=== PATIENT | male | born 1955 | race Caucasian/White ===

== ENCOUNTER 2018-03-15 07:23 | Inpatient (IN) | payer BC, MEDICAID, MEDICARE, OTHER ==
[2018-03-15 07:48] VITALS: BMI 31.8
[2018-03-15] MEDS ORDERED: Sodium Chloride 0.9% 1,000 ML IV STA (07:58)
[2018-03-15] MEDS ORDERED: Alum-Mag Hydrox-Simethicone Susp (30 mL) PO STA (07:58)
[2018-03-15] MEDS ORDERED: Aluminum Hydroxide/Magnesium Hydroxide Susp (30 mL) ONE (08:09)
[2018-03-15] MEDS ORDERED: Sodium Chloride 0.9% 1,000 ML ONE (08:09)
--- NOTE | 2018-03-15 08:13 | C.PDOC ---
History Of Present Illness 62 years old male with PMHx of hypercholesterolemia presents to ED for complaints of abdominal pain that began last night. Patient reports non-bloody, non- bilious vomiting x8 and non-bloody diarrhea. Denies fever, SOB, dysuria, or recent travel. Patient also complaints of experiencing left sided chest pain x3 that began last night. He also reports left flank pain. Time Seen by Provider: 03/15/18 07:50 Chief Complaint (Nursing): GI Problem History Per: Patient History/Exam Limitations: no limitations Onset/Duration Of Symptoms: Hrs Current Symptoms Are (Timing): Still Present Radiation Of Pain To:: Flank Associated Symptoms: Vomiting, Diarrhea. denies: Fever, Urinary Symptoms Exacerbating Factors: None Alleviating Factors: None Last Bowel Movement: Today Recent travel outside of the [place]: No Past Medical History Reviewed: Historical Data, Nursing Documentation, Vital Signs Vital Signs: Last Vital Signs Temp 98.4 F 03/15/18 07:28 Pulse 110 H 03/15/18 07:58 Resp 20 03/15/18 07:58 BP 121/82 03/15/18 07:58 Pulse Ox 95 03/15/18 07:58 - Medical History PMH: Hypercholesterolemia Family History: States: No Known Family Hx - Social History Hx Alcohol Use: No Hx Substance Use: No - Immunization History Hx Tetanus Toxoid Vaccination: No Hx Influenza Vaccination: No Hx Pneumococcal Vaccination: No Review Of Systems Respiratory: Negative for: Shortness of Breath Genitourinary: Negative for: Dysuria Physical Exam - Physical Exam Additional Physical Exam Comments: Constitutional: No acute distress. Head: Normocephalic. Atraumatic. Eyes: PERRL. ENT: Moist mucous membranes. Neck: Supple. Cardiovascular: Tachycardic. Chest: No tenderness. Respiratory: Clear to auscultation bilaterally. GI: Soft. Nontender. Nondistended. Back: No CVA tenderness. Musculoskeletal: No tenderness or swelling of extremities. Skin: No rash. Neurologic: Alert, no focal deficit. ED Course And Treatment - Laboratory Results Result Diagrams: 03/15/18 08:12 03/15/18 08:12 O2 Sat by Pulse Oximetry: 95 (RA) Pulse Ox Interpretation: Normal Medical Decision Making Medical Decision Making: Plan: * IV Fluids * Maalox * Pepcid * Zofran * CXR * CT Abdomen&Pelvis * Urine Culture * Urinalysis EKG: * Sinus Rhythm at 109 bpm * No ST-Elevations Aspirin administered. First set of enzymes negative. Dr. Samano accepts patient to medical service for chest pain observation. Antibiotics administered for enteritis. Disposition - Disposition Disposition: HOSPITALIZED Disposition Time: 10:31 Condition: FAIR Additional Instructions: FINDINGS: LOWER THORAX: There is subsegmental atelectasis in the right lung base. The visualized left lung is clear. LIVER: Normal in size with homogeneous enhancement. No gross lesion or ductal dilatation. GALLBLADDER AND BILE DUCTS: Well distended. No calcified gallstones, wall thickening or pericholecystic fluid. PANCREAS: Mild fatty atrophy. No gross lesion or ductal dilatation. SPLEEN: Normal in size and appearance. ADRENALS: No discrete nodule. KIDNEYS AND URETERS: Normal in size with homogeneous enhancement. No hydronephrosis. No solid mass. VASCULATURE: No aortic aneurysm. BOWEL: Evaluation of the bowel is limited in the absence of oral contrast. The proximal small bowel loops are normal in caliber. There are fluid-filled dilated mid and distal small bowel loops and fluid in the colon with air-fluid levels. There is left colonic diverticulosis without CT evidence for acute diverticulitis. No bowel obstruction. APPENDIX: Normal appendix. PERITONEUM: No free fluid. No free air. LYMPH NODES: No enlarged lymph nodes. BLADDER: Well distended and normal in appearance. REPRODUCTIVE: The prostate gland is normal in size. BONES: No acute fracture. Within normal limits for the patient's age. OTHER FINDINGS: None. IMPRESSION: Findings are most compatible with nonspecific acute infectious/inflammatory enterocolitis. No bowel obstruction. Left colonic diverticulosis without CT evidence for acute diverticulitis. Forms: [employer] (Pashto) - POA Core Measure Indicators: Chest Pain - Clinical Impression Clinical Impression: Chest pain, Enterocolitis - Scribe Statement The provider has reviewed the documentation as recorded by the Hector Davis All medical record entries made by the Hector were at my direction and personally dictated by me. I have reviewed the chart and agree that the record accurately reflects my personal performance of the history, physical exam, medical decision making, and the department course for this patient. I have also personally directed, reviewed, and agree with the discharge instructions and disposition.
[2018-03-15 08:18] LABS: BASO % 0.2 % (0.0-2.0); EOS % 0.1 % (0.0-4.0); HEMOGLOBIN 17.5 g/dL (12.0-18.0); LYMPH # 0.4 K/uL (1.0-4.3); LYMPH % 4.3 % (20.0-40.0); MEAN CORPUSCULAR HEMOGLOBIN 32.1 pg (27.0-31.0); MEAN CORPUSCULAR HGB CONC 34.5 g/dL (33.0-37.0); MEAN PLATELET VOLUME 9.8 fL (7.2-11.7); MONO # 0.3 K/uL (0.0-0.8); MONO % 2.7 % (0.0-10.0); NEUT % 92.7 % (50.0-75.0); NRBC % 0.3 % (0.0-2.0); PLATELET COUNT 170 K/uL (130-400); RBC 5.45 Mil/uL (4.40-5.90); RED CELL DISTRIBUTION WIDTH 13.3 % (11.5-14.5); WHITE BLOOD COUNT 9.7 K/uL (4.8-10.8)
[2018-03-15 08:21] LABS: SQUAMOUS EPITHIAL < 1 /hpf (0-5); URINE BILIRUBIN 2+ (NEGATIVE); URINE BLOOD NEGATIVE (NEGATIVE); URINE CLARITY Hazy (Clear); URINE COLOR Amber (YELLOW); URINE GLUCOSE (UA) NORMAL (Normal); URINE LEUKOCYTE ESTERASE NEG Leu/uL (Negative); URINE PROTEIN 2+ mg/dL (NEGATIVE)
[2018-03-15 08:28] LABS: ALB/GLOB RATIO 1.2 (1.0-2.1); ALBUMIN 4.7 g/dL (3.5-5.0); ALT/SGPT 77 U/L (21-72); AST/SGOT 53 U/L (17-59); BLOOD UREA NITROGEN 22 mg/dL (9-20); CALCIUM 8.9 mg/dl (8.6-10.4); GFR NON-AFRICAN AMERICAN > 60
[2018-03-15 08:29] LABS: LIPASE < 10 U/L (23-300)
[2018-03-15 08:42] LABS: CK-MB 0.79 ng/mL (0.0-3.38)
[2018-03-15 09:24] LABS: LYMPHOCYTE 7 % (20-40); MONOCYTE 3 % (0-10); NEUTROPHIL 90 % (50-75); PLATELET ESTIMATE NORMAL (NORMAL); TOTAL CELLS COUNTED 100
[2018-03-15] MEDS ORDERED: Iodixanol 320 mg/ml 150 ml Bottle IV ONE (09:25)
--- NOTE | 2018-03-15 10:24 | CT ---
Date of service: 03/15/2018 PROCEDURE: CT Abdomen and Pelvis with contrast HISTORY: abd pain, vomiting, diarrhea COMPARISON: None available. TECHNIQUE: CT scan of the abdomen and pelvis was performed after administration of intravenous contrast. Oral contrast was not administered. Coronal and sagittal reformatted images were obtained. Contrast dose: 100 mL Visipaque 320 Radiation dose: Total exam DLP = 913.87 mGy-cm. This CT exam was performed using one or more of the following dose reduction techniques: Automated exposure control, adjustment of the mA and/or kV according to patient size, and/or use of iterative reconstruction technique. FINDINGS: LOWER THORAX: There is subsegmental atelectasis in the right lung base. The visualized left lung is clear. LIVER: Normal in size with homogeneous enhancement. No gross lesion or ductal dilatation. GALLBLADDER AND BILE DUCTS: Well distended. No calcified gallstones, wall thickening or pericholecystic fluid. PANCREAS: Mild fatty atrophy. No gross lesion or ductal dilatation. SPLEEN: Normal in size and appearance. ADRENALS: No discrete nodule. KIDNEYS AND URETERS: Normal in size with homogeneous enhancement. No hydronephrosis. No solid mass. VASCULATURE: No aortic aneurysm. BOWEL: Evaluation of the bowel is limited in the absence of oral contrast. The proximal small bowel loops are normal in caliber. There are fluid-filled dilated mid and distal small bowel loops and fluid in the colon with air-fluid levels. There is left colonic diverticulosis without CT evidence for acute diverticulitis. No bowel obstruction. APPENDIX: Normal appendix. PERITONEUM: No free fluid. No free air. LYMPH NODES: No enlarged lymph nodes. BLADDER: Well distended and normal in appearance. REPRODUCTIVE: The prostate gland is normal in size. BONES: No acute fracture. Within normal limits for the patient's age. OTHER FINDINGS: None. IMPRESSION: Findings are most compatible with nonspecific acute infectious/inflammatory enterocolitis. No bowel obstruction. Left colonic diverticulosis without CT evidence for acute diverticulitis.
[2018-03-15] MEDS ORDERED: Ciprofloxacin 400mg/200ml D5W 400 MG/200 ML BAG IVPB STA (10:44)
[2018-03-15] MEDS ORDERED: metroNIDAZOLE IV 500 mg/100 ml 500 MG/100 ML BAG IVPB STA (10:44)
[2018-03-15] MEDS ORDERED: metroNIDAZOLE IV 500 mg/100 ml 500 MG/100 ML BAG ONE (10:52)
--- NOTE | 2018-03-15 10:52 | RAD ---
Date of service: 03/15/2018 HISTORY: chest pain COMPARISON: No prior. FINDINGS: LUNGS: The lungs are well inflated and clear. PLEURA: No pleural effusions or pneumothorax. CARDIOVASCULAR: The heart is normal in size. No aortic atherosclerotic calcification present. OSSEOUS STRUCTURES: Within normal limits for the patient's age. VISUALIZED UPPER ABDOMEN: Normal. OTHER FINDINGS: None. IMPRESSION: No active pulmonary disease.
[2018-03-15] MEDS ORDERED: Ciprofloxacin 400mg/200ml D5W 400 MG/200 ML BAG IVPB ONE (11:31)
--- NOTE | 2018-03-15 14:03 | CP.PCM.HP ---
History of Present Illness - History of Present Illness History of Present Illness: 62 years old male with PMHx of hypercholesterolemia presents to ED for complaints of abdominal pain that began last night. Patient reports non-bloody, non- bilious vomiting x8 and non-bloody diarrhea. Denies fever, SOB, dysuria, or recent travel. Patient also complaints of experiencing left sided chest pain x3 that began last night. Review of Systems - Review of Systems All systems: reviewed and no additional remarkable complaints except (abdominal and lower chest pain) Past Patient History - Past Medical History & Family History Past Medical History?: Yes - Past Social History Smoking Status: Never Smoked - CARDIAC Hx Hypercholesterolemia: Yes - PULMONARY Hx Respiratory Disorders: No - NEUROLOGICAL Hx Neurological Disorder: No - HEENT Hx HEENT Problems: Yes (THROAT POLYP) - RENAL Hx Chronic Kidney Disease: No - ENDOCRINE/METABOLIC Hx Endocrine Disorders: No - HEMATOLOGICAL/ONCOLOGICAL Hx Blood Disorders: No - INTEGUMENTARY Hx Dermatological Problems: No - MUSCULOSKELETAL/RHEUMATOLOGICAL Hx Musculoskeletal Disorders: Yes Hx Back Pain: Yes - GASTROINTESTINAL Hx Gastrointestinal Disorders: No - GENITOURINARY/GYNECOLOGICAL Hx Genitourinary Disorders: No - PSYCHIATRIC Hx Substance Use: No - SURGICAL HISTORY Hx Surgeries: Yes Other/Comment: THROAT BIOPSY - ANESTHESIA Hx Anesthesia: Yes Hx Anesthesia Reactions: No Hx Malignant Hyperthermia: No Meds Allergies/Adverse Reactions: Allergies Allergy/AdvReac Type Severity Reaction Status Date / Time No Known Allergies Allergy Verified 03/15/18 07:27 Physical Exam - Constitutional Appears: Well - Head Exam Head Exam: ATRAUMATIC, NORMAL INSPECTION, NORMOCEPHALIC - Eye Exam Eye Exam: EOMI, Normal appearance, PERRL Pupil Exam: NORMAL ACCOMODATION, PERRL - ENT Exam ENT Exam: Mucous Membranes Moist, Normal Exam - Neck Exam Neck exam: Positive for: Normal Inspection - Respiratory Exam Respiratory Exam: Clear to Auscultation Bilateral, NORMAL BREATHING PATTERN - Cardiovascular Exam Cardiovascular Exam: REGULAR RHYTHM - GI/Abdominal Exam GI & Abdominal Exam: Normal Bowel Sounds, Tenderness. absent: Distended, Guarding, Organomegaly, Pulsatile Mass, Rebound - Back Exam Back exam: absent: CVA tenderness (L), CVA tenderness (R) Results - Vital Signs Recent Vital Signs: Last Vital Signs Temp 97.7 F 03/15/18 12:20 Pulse 86 03/15/18 12:20 Resp 18 03/15/18 12:20 BP 112/74 03/15/18 12:20 Pulse Ox 97 03/15/18 12:20 - Labs Result Diagrams: 03/15/18 08:12 03/15/18 08:12 Labs: Laboratory Results - last 24 hr 03/15/18 03/15/18 03/15/18 08:12 08:12 08:12 WBC 9.7 RBC 5.45 Hgb 17.5 Hct 50.7 MCV 93.0 MCH 32.1 H MCHC 34.5 RDW 13.3 Plt Count 170 MPV 9.8 Neut % (Auto) 92.7 H Lymph % (Auto) 4.3 L [place] % (Auto) 2.7 Eos % (Auto) 0.1 Baso % (Auto) 0.2 Neut # (Auto) 9.0 H Lymph # (Auto) 0.4 L [place] # (Auto) 0.3 Eos # (Auto) 0.0 Baso # (Auto) 0.0 Neutrophils % (Manual) 90 H Lymphocytes % (Manual) 7 L Monocytes % (Manual) 3 Platelet Estimate Normal Sodium 140 Potassium 3.8 Chloride 104 Carbon Dioxide 23 Anion Gap 17 BUN 22 H Creatinine 0.8 Est GFR ( Amer) > 60 Est GFR (Non-Af Amer) > 60 Random Glucose 149 H D Calcium 8.9 Total Bilirubin 1.0 AST 53 ALT 77 H D Alkaline Phosphatase 66 Total Creatine Kinase 96 CK-MB (Mass) 0.79 Troponin I < 0.0120 Total Protein 8.6 H Albumin 4.7 Globulin 3.8 Albumin/Globulin Ratio 1.2 Lipase < 10 L Urine Color Kathia Urine Clarity Hazy Urine pH 5.0 Ur Specific [place] 1.034 H Urine Protein 2+ H Urine Glucose (UA) Normal Urine Ketones Negative Urine Blood Negative Urine Nitrate Negative Urine Bilirubin 2+ H Urine Urobilinogen 2.0 Ur Leukocyte Esterase Neg Urine WBC (Auto) 5 Urine RBC (Auto) 2 Ur Squamous Epith Cells < 1 Assessment & Plan (1) Chest pain Status: Acute (2) Enterocolitis Status: Acute
[2018-03-15 15:39] LABS: CK-MB 0.86 ng/mL (0.0-3.38)
--- NOTE | 2018-03-15 20:43 | CP.PCM.CON ---
History of Present Illness - History of Present Illness History of Present Illness: 62 yo male admitted with diffuse abdominal pain, watery diarrhea and vomiting of bile x8. No fever, chills, bleeding or melena. Pt had colonoscopy 2 years ago showing a small hyperplastic polyp, diverticulosis and internal hemorrhoids with a suboptimal prep. Repeat colonoscopy was advised at that time. CT now show non- specific air fluid levels in small and large bowel in a non-contrast study (no po or IV). Asked to evaluate for enterocolitis. No travel or recent antibiotic use. Review of Systems - Review of Systems Systems not reviewed;Unavailable: Language Barrier Past Patient History - Past Medical History & Family History Past Medical History?: Yes - Past Social History Smoking Status: Never Smoked Alcohol: None Drugs: Denies - CARDIAC Hx Hypercholesterolemia: Yes - PULMONARY Hx Respiratory Disorders: No - NEUROLOGICAL Hx Neurological Disorder: No - HEENT Hx HEENT Problems: Yes (THROAT POLYP) - RENAL Hx Chronic Kidney Disease: No - ENDOCRINE/METABOLIC Hx Endocrine Disorders: No - HEMATOLOGICAL/ONCOLOGICAL Hx Blood Disorders: No Hx Cirrhosis: No Hx Hepatitis A: No Hx Hepatitis B: No Hx Hepatitis C: No - INTEGUMENTARY Hx Dermatological Problems: No - MUSCULOSKELETAL/RHEUMATOLOGICAL Hx Musculoskeletal Disorders: Yes Hx Back Pain: Yes - GASTROINTESTINAL Hx Gastrointestinal Disorders: Yes Hx Bowel Surgery: No Hx Clostridium Difficile: No Hx Colitis: No Hx Colostomy: No Hx Constipation: Yes Hx Crohn's Disease: No Hx Diarrhea: No Hx Diverticulitis: Yes Hx Esophageal Varices: No Hx Fatty Liver Disease: No Hx Gall Bladder Disease: No Hx Gastritis: No Hx Gastroesophageal Reflux: No Hx Hemorrhoids: No Hx Ileostomy: No Hx Irritable Bowel: No Hx Liver Failure: No Hx Nausea: No Hx Pancreatitis: No HX Swallowing Problems: No Hx Ulcer: No Hx Vomiting: No - GENITOURINARY/GYNECOLOGICAL Hx Genitourinary Disorders: No - PSYCHIATRIC Hx Substance Use: No - SURGICAL HISTORY Hx Surgeries: Yes Other/Comment: THROAT BIOPSY - ANESTHESIA Hx Anesthesia: Yes Hx Anesthesia Reactions: No Hx Malignant Hyperthermia: No Meds Allergies/Adverse Reactions: Allergies Allergy/AdvReac Type Severity Reaction Status Date / Time No Known Allergies Allergy Verified 03/15/18 07:27 - Medications Medications: Current Medications Aspirin (Ecotrin) 81 mg PO DAILY [facility] Enoxaparin Sodium (Lovenox) 40 mg SC DAILY [facility] Physical Exam - Constitutional Appears: No Acute Distress - Head Exam Head Exam: ATRAUMATIC, NORMOCEPHALIC - Eye Exam Eye Exam: EOMI, PERRL - Respiratory Exam Respiratory Exam: NORMAL BREATHING PATTERN - Cardiovascular Exam Cardiovascular Exam: REGULAR RHYTHM, +S1 - GI/Abdominal Exam GI & Abdominal Exam: Normal Bowel Sounds, Soft. absent: Distended, Mass, Rebound, Tenderness - Rectal Exam Rectal Exam: NORMAL INSPECTION - Extremities Exam Extremities exam: Positive for: normal inspection Results - Vital Signs Recent Vital Signs: Last Vital Signs Temp 98.1 F 03/15/18 17:25 Pulse 89 03/15/18 17:25 Resp 18 03/15/18 17:25 BP 124/80 03/15/18 17:25 Pulse Ox 94 L 03/15/18 17:25 - Labs Result Diagrams: 03/16/18 07:58 03/16/18 07:58 Labs: Laboratory Results - last 24 hr 03/15/18 03/15/18 03/15/18 08:12 08:12 08:12 WBC 9.7 RBC 5.45 Hgb 17.5 Hct 50.7 MCV 93.0 MCH 32.1 H MCHC 34.5 RDW 13.3 Plt Count 170 MPV 9.8 Neut % (Auto) 92.7 H Lymph % (Auto) 4.3 L [place] % (Auto) 2.7 Eos % (Auto) 0.1 Baso % (Auto) 0.2 Neut # (Auto) 9.0 H Lymph # (Auto) 0.4 L [place] # (Auto) 0.3 Eos # (Auto) 0.0 Baso # (Auto) 0.0 Neutrophils % (Manual) 90 H Lymphocytes % (Manual) 7 L Monocytes % (Manual) 3 Platelet Estimate Normal Sodium 140 Potassium 3.8 Chloride 104 Carbon Dioxide 23 Anion Gap 17 BUN 22 H Creatinine 0.8 Est GFR ( Amer) > 60 Est GFR (Non-Af Amer) > 60 Random Glucose 149 H D Calcium 8.9 Total Bilirubin 1.0 AST 53 ALT 77 H D Alkaline Phosphatase 66 Total Creatine Kinase 96 CK-MB (Mass) 0.79 Troponin I < 0.0120 Total Protein 8.6 H Albumin 4.7 Globulin 3.8 Albumin/Globulin Ratio 1.2 Lipase < 10 L Urine Color Kathia Urine Clarity Hazy Urine pH 5.0 Ur Specific [place] 1.034 H Urine Protein 2+ H Urine Glucose (UA) Normal Urine Ketones Negative Urine Blood Negative Urine Nitrate Negative Urine Bilirubin 2+ H Urine Urobilinogen 2.0 Ur Leukocyte Esterase Neg Urine WBC (Auto) 5 Urine RBC (Auto) 2 Ur Squamous Epith Cells < 1 03/15/18 14:32 WBC RBC Hgb Hct MCV MCH MCHC RDW Plt Count MPV Neut % (Auto) Lymph % (Auto) [place] % (Auto) Eos % (Auto) Baso % (Auto) Neut # (Auto) Lymph # (Auto) [place] # (Auto) Eos # (Auto) Baso # (Auto) Neutrophils % (Manual) Lymphocytes % (Manual) Monocytes % (Manual) Platelet Estimate Sodium Potassium Chloride Carbon Dioxide Anion Gap BUN Creatinine Est GFR ( Amer) Est GFR (Non-Af Amer) Random Glucose Calcium Total Bilirubin AST ALT Alkaline Phosphatase Total Creatine Kinase 111 CK-MB (Mass) 0.86 Troponin I < 0.0120 Total Protein Albumin Globulin Albumin/Globulin Ratio Lipase Urine Color Urine Clarity Urine pH Ur Specific [place] Urine Protein Urine Glucose (UA) Urine Ketones Urine Blood Urine Nitrate Urine Bilirubin Urine Urobilinogen Ur Leukocyte Esterase Urine WBC (Auto) Urine RBC (Auto) Ur Squamous Epith Cells Assessment & Plan (1) Lower abdominal pain Assessment and Plan: Patient with pain, N/V and diarrhea with non-specific CT findings suggestive of an acute infectious process/enteritis. Check stool studies Sonogram to r/o cholecystitis IV fluids and supportive care Defer emperic antibiotics at this time. Status: Acute (2) Diarrhea Assessment and Plan: as above Status: Acute (3) Nausea and vomiting Assessment and Plan: as above Status: Acute (4) Abnormal CT of the abdomen Assessment and Plan: as above Status: Acute
[2018-03-16 08:08] LABS: BASO % 0.4 % (0.0-2.0); EOS # 0.2 K/uL (0.0-0.7); EOS % 3.9 % (0.0-4.0); LYMPH # 0.8 K/uL (1.0-4.3); LYMPH % 15.3 % (20.0-40.0); MEAN CELL VOLUME 94.1 fL (80.0-94.0); MEAN CORPUSCULAR HEMOGLOBIN 32.1 pg (27.0-31.0); MEAN CORPUSCULAR HGB CONC 34.1 g/dL (33.0-37.0); MEAN PLATELET VOLUME 9.2 fL (7.2-11.7); MONO # 0.6 K/uL (0.0-0.8); MONO % 10.2 % (0.0-10.0); NEUT # 3.8 K/uL (1.8-7.0); NEUT % 70.2 % (50.0-75.0); NRBC % 0.2 % (0.0-2.0); RBC 5.29 Mil/uL (4.40-5.90); RED CELL DISTRIBUTION WIDTH 13.7 % (11.5-14.5); WHITE BLOOD COUNT 5.4 K/uL (4.8-10.8)
[2018-03-16 08:27] LABS: ALB/GLOB RATIO 1.2 (1.0-2.1); ALBUMIN 4.3 g/dL (3.5-5.0); ALT/SGPT 91 U/L (21-72); AST/SGOT 78 U/L (17-59); BLOOD UREA NITROGEN 16 mg/dL (9-20); CALCIUM 8.6 mg/dl (8.6-10.4); GFR NON-AFRICAN AMERICAN > 60
[2018-03-16 08:32] LABS: CK-MB 0.58 ng/mL (0.0-3.38)
[2018-03-16] MEDS: Enoxaparin 40 mg Syringe SC SCH (10:23)
--- NOTE | 2018-03-16 10:56 | CP.PCM.PN ---
Subjective - Date & Time of Evaluation Date of Evaluation: 03/16/18 Time of Evaluation: 10:54 - Subjective Subjective: No further N/V Has some RLQ pain and diarrhea persists No stool studies reported Objective - Vital Signs/Intake and Output Vital Signs (last 24 hours): Temp Pulse Resp BP Pulse Ox 97.2 F L 74 20 114/74 94 L 03/16/18 07:00 03/16/18 07:00 03/16/18 07:00 03/16/18 07:00 03/16/18 07:00 - Medications Medications: Current Medications Aspirin (Ecotrin) 81 mg PO DAILY [facility] Last Admin: 03/16/18 10:22 Dose: 81 mg Enoxaparin Sodium (Lovenox) 40 mg SC DAILY [facility] Last Admin: 03/16/18 10:23 Dose: 40 mg - Labs Labs: 03/16/18 07:58 03/16/18 07:58 - Constitutional Appears: No Acute Distress - Head Exam Head Exam: ATRAUMATIC, NORMOCEPHALIC - Eye Exam Eye Exam: EOMI, PERRL - Respiratory Exam Respiratory Exam: NORMAL BREATHING PATTERN - Cardiovascular Exam Cardiovascular Exam: REGULAR RHYTHM, +S1 - GI/Abdominal Exam GI & Abdominal Exam: Soft, Normal Bowel Sounds. absent: Distended, Guarding, Tenderness, Mass, Rebound - Extremities Exam Extremities Exam: Normal Inspection Assessment and Plan (1) Lower abdominal pain Assessment & Plan: Continue supportive care Awaiting stool studies Labs appear stable Advance diet when pain free Check Ultrasound Status: Acute (2) Diarrhea Status: Acute (3) Nausea and vomiting Status: Acute (4) Abnormal CT of the abdomen Status: Acute
[2018-03-16] MEDS ORDERED: Loperamide Hydrochloride 1 mg/5 ml Cup PO PRN (13:48)
--- NOTE | 2018-03-16 14:28 | CARD ---
APPROVED REPORT Date of service: 03/15/2018 EXAM: Two-dimensional and M-mode echocardiogram with Doppler and color Doppler. INDICATION Chest Pain RISK FACTORS Hyperlipidemia 2D DIMENSIONS IVSd0.9 (0.7-1.1cm)Aortic Root (2D)3.2 (2.0-3.7cm) LVDd5.2 (3.9-5.9cm)PWd0.7 (0.7-1.1cm) LA Rpierr16 (18-58mL)LVDs3.6 (2.5-4.0cm) FS (%) 31.1 %LVEF (%)58.4 (>50%) LVEF (Tompkins's)63.93 %IVC0.00 cm M-Mode DIMENSIONS Left Atrium (MM)3.92 (2.5-4.0cm)IVSd0.73 (0.7-1.1cm) Aortic Root2.74 (2.2-3.7cm)LVDd5.73 (4.0-5.6cm) Aortic Cusp Exc.2.01 (1.5-2.0cm)PWd0.80 (0.7-1.1cm) FS (%) 48 %LVDs2.98 (2.0-3.8cm) LVEF (%)79 (>50%) Mitral Valve MV E [place]47.0cm/sMV A [place]20.7cm/sE/A ratio0.8 TDI Lateral E' Peak V5.90cm/sMedial E' Peak V5.58cm/sE/Lateral E'12.7 E/Medial E'13.4 Tricuspid Valve TR Peak [id number]/sTR Peak Gr.[id number] <Conclusion> normal size la,lv & ra rv. normal lv systolic funciton,wall motion,thickness with lvef of 60-65%. lv diastolic dysfunction grade one. normal aortic,mitral,tv & pv. mild tr with normal pulmonary systolic pressures of 28 mm of hg. no pericardial effusion. normal size aortic root & ivc.
--- NOTE | 2018-03-16 14:28 | CP.PCM.PN ---
Subjective - Date & Time of Evaluation Date of Evaluation: 03/16/18 Time of Evaluation: 14:26 - Subjective Subjective: CHIEF COMPLAINTS TODAY : Patient is complaining of epigastric pain with watery diarrhea no fever. No further chest pain ROS. HEENT : N. Resp : No cough, wheezing ,pleuritic CP ,or hemoptysis Cardio : No anginal CP, PND, orthopnea, palpitation GI : NoGI bleeding . D[employer]ER : No headache, vertigo, focal deficit. Musculoskel : No joint swelling , Derm : No rash Psych : Normal affect. Ext : No swelling ,calf pain PE. Pt. is alert awake in no distress. V.S As noted in the chart Head ,ear nose,throat and eyes : Normal. Neck : Supple with normal carotids. Lungs: Clear air entry. Heart : S1 & S2 normal with S4. No murmur. Abd : Soft tender with normal bowel sounds. Neuro : Moves all ext. with no localized deficit. Ext : No edema with intact pulses.Non tender calves Derm : No rashes or decubitus ulcer. LABS/RADIOLOGY:3 sets of cardiac enzymes troponin levels are negative. Echo is pending ASSESSMENT/PLAN : Continue IV fluids Pepcid awaiting stool workup Objective - Vital Signs/Intake and Output Vital Signs (last 24 hours): Temp Pulse Resp BP Pulse Ox 97.2 F L 74 20 114/74 94 L 03/16/18 07:00 03/16/18 07:00 03/16/18 07:00 03/16/18 07:00 03/16/18 07:00 - Medications Medications: Current Medications Aspirin (Ecotrin) 81 mg PO DAILY [facility] Last Admin: 03/16/18 10:22 Dose: 81 mg Enoxaparin Sodium (Lovenox) 40 mg SC DAILY [facility] Last Admin: 03/16/18 10:23 Dose: 40 mg Famotidine (Pepcid) 20 mg PO DAILY [facility] Last Admin: 03/16/18 14:11 Dose: 20 mg Loperamide HCl (Imodium) 1 mg PO Q4 PRN PRN Reason: Diarrhea Last Admin: 03/16/18 14:12 Dose: 1 mg - Labs Labs: 03/16/18 07:58 03/16/18 07:58 Assessment and Plan (1) Chest pain Status: Acute (2) Enterocolitis Status: Acute
--- NOTE | 2018-03-16 18:39 | CP.PCM.CON ---
History of Present Illness - History of Present Illness History of Present Illness: INFECTIOUS DISEASE CONSULT; HPI 62-year-old Pashto-speaking male who presented to [facility] complaining of diffuse abdominal pain mainly epigastric in nature with watery diarrhea and bilious vomiting. Patient states he is having 8-10 loose bowel movements daily since admission and presently notes blood in his stools. His stools are dark colored and melanotic in nature. Infectious disease consultation requested by PMD for enterocolitis. Patient denies any recent intake of antibiotics or recent travel. He also complains of left-sided chest pain since his in the hospital. CT scan of the abdomen and pelvis with IV contrast shows nonspecific air-fluid levels in small and large bowel. Nonspecific infectious/inflammatory enterocolitis suspected. PATIENT DENIES ANY RECENT TRAVEL OR ANY SICK CONTACTS PMH: Hypercholesterolemia Family History: States: No Known Family Hx - Social History Hx Alcohol Use: No Hx Substance Use: No - Immunization History Hx Tetanus Toxoid Vaccination: No Hx Influenza Vaccination: No Hx Pneumococcal Vaccination: No ALLERGY; NKA. Review of Systems - Constitutional Constitutional: absent: Chills, Fever, Weight Loss - EENT Nose/Mouth/Throat: Dry Mouth. absent: Mouth Lesions - Cardiovascular Cardiovascular: Chest Pain. absent: Dyspnea, Palpitations - Respiratory Respiratory: absent: Cough - Gastrointestinal Gastrointestinal: Abdominal Pain (EPIGASTRIC AND MID ABDOMEN.), Change in Stool Character, Diarrhea, Melena. absent: Odynophagia - Genitourinary Genitourinary: absent: Dysuria, Freq UTI - Neurological Neurological: absent: Headaches - Hematologic/Lymphatic Hematologic: As Per HPI. absent: Easy Bleeding, Easy Bruising, Lymphadenopathy Past Patient History - Past Medical History & Family History Past Medical History?: Yes - Past Social History Smoking Status: Never Smoked Alcohol: None Drugs: Denies - CARDIAC Hx Hypercholesterolemia: Yes - PULMONARY Hx Respiratory Disorders: No - NEUROLOGICAL Hx Neurological Disorder: No - HEENT Hx HEENT Problems: Yes (THROAT POLYP) - RENAL Hx Chronic Kidney Disease: No - ENDOCRINE/METABOLIC Hx Endocrine Disorders: No - HEMATOLOGICAL/ONCOLOGICAL Hx Blood Disorders: No Hx Cirrhosis: No Hx Hepatitis A: No Hx Hepatitis B: No Hx Hepatitis C: No - INTEGUMENTARY Hx Dermatological Problems: No - MUSCULOSKELETAL/RHEUMATOLOGICAL Hx Musculoskeletal Disorders: Yes Hx Back Pain: Yes - GASTROINTESTINAL Hx Gastrointestinal Disorders: Yes Hx Bowel Surgery: No Hx Clostridium Difficile: No Hx Colitis: No Hx Colostomy: No Hx Constipation: Yes Hx Crohn's Disease: No Hx Diarrhea: No Hx Diverticulitis: Yes Hx Esophageal Varices: No Hx Fatty Liver Disease: No Hx Gall Bladder Disease: No Hx Gastritis: No Hx Gastroesophageal Reflux: No Hx Hemorrhoids: No Hx Ileostomy: No Hx Irritable Bowel: No Hx Liver Failure: No Hx Nausea: No Hx Pancreatitis: No HX Swallowing Problems: No Hx Ulcer: No Hx Vomiting: No - GENITOURINARY/GYNECOLOGICAL Hx Genitourinary Disorders: No - PSYCHIATRIC Hx Substance Use: No - SURGICAL HISTORY Hx Surgeries: Yes Other/Comment: THROAT BIOPSY - ANESTHESIA Hx Anesthesia: Yes Hx Anesthesia Reactions: No Hx Malignant Hyperthermia: No Meds Allergies/Adverse Reactions: Allergies Allergy/AdvReac Type Severity Reaction Status Date / Time No Known Allergies Allergy Verified 03/15/18 07:27 - Medications Medications: Current Medications Aspirin (Ecotrin) 81 mg PO DAILY [facility] Last Admin: 03/16/18 10:22 Dose: 81 mg Enoxaparin Sodium (Lovenox) 40 mg SC DAILY [facility] Last Admin: 03/16/18 10:23 Dose: 40 mg Famotidine (Pepcid) 20 mg PO DAILY [facility] Last Admin: 03/16/18 14:11 Dose: 20 mg Loperamide HCl (Imodium) 1 mg PO Q4 PRN PRN Reason: Diarrhea Last Admin: 03/16/18 14:12 Dose: 1 mg Results - Vital Signs Recent Vital Signs: Last Vital Signs Temp 99.7 F H 03/16/18 15:00 Pulse 90 03/16/18 15:27 Resp 20 03/16/18 15:00 BP 122/81 03/16/18 15:00 Pulse Ox 94 L 03/16/18 15:00 - Labs Result Diagrams: 03/17/18 08:09 03/16/18 07:58 Labs: Laboratory Results - last 24 hr 03/16/18 03/16/18 03/16/18 07:58 07:58 07:58 WBC 5.4 RBC 5.29 Hgb 17.0 Hct 49.7 MCV 94.1 H MCH 32.1 H MCHC 34.1 RDW 13.7 Plt Count 148 MPV 9.2 Neut % (Auto) 70.2 Lymph % (Auto) 15.3 L Irion % (Auto) 10.2 H Eos % (Auto) 3.9 Baso % (Auto) 0.4 Neut # (Auto) 3.8 Lymph # (Auto) 0.8 L Irion # (Auto) 0.6 Eos # (Auto) 0.2 Baso # (Auto) 0.0 Sodium 136 Potassium 4.0 Chloride 106 Carbon Dioxide 21 L Anion Gap 14 BUN 16 Creatinine 0.7 L Est GFR ( Amer) > 60 Est GFR (Non-Af Amer) > 60 Random Glucose 121 H Calcium 8.6 Phosphorus 3.3 Magnesium 2.1 Total Bilirubin 0.9 AST 78 H D ALT 91 H Alkaline Phosphatase 55 Total Creatine Kinase 93 CK-MB (Mass) 0.58 Troponin I < 0.0120 Total Protein 7.8 Albumin 4.3 Globulin 3.5 Albumin/Globulin Ratio 1.2 - Imaging and Cardiology Chest x-ray Status: Report reviewed by me (NO ACTIVE DISEASE) Assessment & Plan (1) Abdominal pain Status: Acute (2) Enterocolitis Status: Acute (3) Abnormal transaminases Status: Acute (4) Chest pain, atypical Assessment and Plan: TROPONINS -VE X 2 Status: Acute - Assessment and Plan (Free Text) Plan: PLAN; PANCULTURE. DIARRHOEA W/U HEPATITIS PROFILE. MONITOR LFTS START iv CEFEPIME 1 G EVERY 12 HOURLY 03/16/18. START iv fLAGYL 250 EVERY 8 HOURLY FOR ANAEROBIC COVERAGE 03/16/18. GI ON BOARD. F/U CULTURES TO ADJUST ANTIBIOTICS.
[2018-03-16] MEDS: Cefepime IV 1 gm in Dextrose 1 GM/50 ML BAG IVPB SCH (19:25)
[2018-03-16] MEDS: metroNIDAZOLE IV 500 mg/100 ml 250 MG in Premixed IV 1 EA IVPB SCH (20:16)
[2018-03-17] MEDS: metroNIDAZOLE IV 500 mg/100 ml 250 MG in Premixed IV 1 EA IVPB SCH ×3 (02:41→18:05)
[2018-03-17] MEDS: Cefepime IV 1 gm in Dextrose 1 GM/50 ML BAG IVPB SCH ×2 (06:00→18:46)
[2018-03-17 08:23] LABS: BASO % 0.6 % (0.0-2.0); EOS # 0.3 K/uL (0.0-0.7); EOS % 5.6 % (0.0-4.0); HEMOGLOBIN 16.9 g/dL (12.0-18.0); LYMPH # 0.9 K/uL (1.0-4.3); LYMPH % 19.2 % (20.0-40.0); MEAN CELL VOLUME 93.5 fL (80.0-94.0); MEAN CORPUSCULAR HEMOGLOBIN 32.3 pg (27.0-31.0); MEAN CORPUSCULAR HGB CONC 34.5 g/dL (33.0-37.0); MONO # 0.6 K/uL (0.0-0.8); MONO % 12.7 % (0.0-10.0); NEUT # 2.9 K/uL (1.8-7.0); NEUT % 61.9 % (50.0-75.0); NRBC % 0.2 % (0.0-2.0); RBC 5.23 Mil/uL (4.40-5.90); RED CELL DISTRIBUTION WIDTH 13.2 % (11.5-14.5); WHITE BLOOD COUNT 4.6 K/uL (4.8-10.8)
[2018-03-17 08:40] LABS: ALB/GLOB RATIO 1.1 (1.0-2.1); ALBUMIN 3.9 g/dL (3.5-5.0); BILIRUBIN,DIRECT 0.4 mg/dL (0.0-0.4)
[2018-03-17 09:00] LABS: HEPATITIS B SURFACE AG Negative (NEGATIVE)
[2018-03-17 09:06] LABS: HEPATITIS A IGM NEGATIVE (NEGATIVE); HEPATITIS B CORE AB NEGATIVE (NEGATIVE)
[2018-03-17 09:17] LABS: HEPATITIS C ANTIBODY NEGATIVE (NEGATIVE)
[2018-03-17] MEDS: Enoxaparin 40 mg Syringe SC SCH (09:49)
--- NOTE | 2018-03-17 12:57 | CP.PCM.PN ---
Subjective - Date & Time of Evaluation Date of Evaluation: 03/17/18 Time of Evaluation: 12:54 - Subjective Subjective: Still with epigastric pain and heartburn, no chest pain. Still 4-6 loose stools. C diff toxin negative, all other stool studies pending Viral hepatitis studies negative Objective - Vital Signs/Intake and Output Vital Signs (last 24 hours): Temp Pulse Resp BP Pulse Ox 98.1 F 109 H 18 123/76 99 03/17/18 07:00 03/17/18 08:02 03/17/18 07:00 03/17/18 07:00 03/17/18 12:00 - Medications Medications: Current Medications Aspirin (Ecotrin) 81 mg PO DAILY [facility] Last Admin: 03/17/18 09:49 Dose: 81 mg Enoxaparin Sodium (Lovenox) 40 mg SC DAILY [facility] Last Admin: 03/17/18 09:49 Dose: 40 mg Famotidine (Pepcid) 20 mg PO DAILY [facility] Last Admin: 03/17/18 09:49 Dose: 20 mg Cefepime HCl (Maxipime Iv 1 Gm Premix) 1 gm in 50 mls @ 100 mls/hr IVPB Q12H [facility]; Protocol Last Admin: 03/17/18 06:00 Dose: 100 mls/hr Metronidazole 250 mg/ (Miscellaneous) 50 mls @ 100 mls/hr IVPB Q8H [facility]; Protocol Last Admin: 03/17/18 09:48 Dose: 100 mls/hr Loperamide HCl (Imodium) 1 mg PO Q4 PRN PRN Reason: Diarrhea Last Admin: 03/16/18 14:12 Dose: 1 mg - Labs Labs: 03/17/18 08:09 03/16/18 07:58 - Constitutional Appears: No Acute Distress - Head Exam Head Exam: ATRAUMATIC, NORMOCEPHALIC - Eye Exam Eye Exam: EOMI, PERRL - Respiratory Exam Respiratory Exam: NORMAL BREATHING PATTERN - Cardiovascular Exam Cardiovascular Exam: REGULAR RHYTHM - GI/Abdominal Exam GI & Abdominal Exam: Soft, Tenderness, Normal Bowel Sounds. absent: Distended, Mass, Rebound - Extremities Exam Extremities Exam: Normal Inspection Assessment and Plan (1) Lower abdominal pain Status: Resolved (2) Diarrhea Status: Acute (3) Nausea and vomiting Status: Acute (4) Abnormal CT of the abdomen Status: Acute (5) Abnormal transaminases Assessment & Plan: viral hepatitis has been ruled out. 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 Ultrasound ordered Status: Acute (6) Epigastric pain Assessment & Plan: Pain and tenderness in epigastrum persist. R/O PUD, gastritis, occult malignancy, severe MARGIE. Plan for EGD in am. Status: Acute
[2018-03-17] MEDS: Pantoprazole 40 mg EC Tab PO SCH (14:00)
--- NOTE | 2018-03-17 16:23 | CP.PCM.PN ---
Subjective - Date & Time of Evaluation Date of Evaluation: 03/17/18 Time of Evaluation: 16:22 - Subjective Subjective: CHIEF COMPLAINTS TODAY : Patient is complaining of epigastric pain with watery diarrhea no fever. No further chest pain ROS. HEENT : N. Resp : No cough, wheezing ,pleuritic CP ,or hemoptysis Cardio : No anginal CP, PND, orthopnea, palpitation GI : NoGI bleeding . FRONT MAKER : No headache, vertigo, focal deficit. Musculoskel : No joint swelling , Derm : No rash Psych : Normal affect. Ext : No swelling ,calf pain PE. Pt. is alert awake in no distress. V.S As noted in the chart Head ,ear nose,throat and eyes : Normal. Neck : Supple with normal carotids. Lungs: Clear air entry. Heart : S1 & S2 normal with S4. No murmur. Abd : Soft tender with normal bowel sounds. Neuro : Moves all ext. with no localized deficit. Ext : No edema with intact pulses.Non tender calves Derm : No rashes or decubitus ulcer. LABS/RADIOLOGY:3 sets of cardiac enzymes troponin levels are negative. Echo N . C. DIFF NEG ASSESSMENT/PLAN : Continue IV fluids Pepcid awaiting stool workup Objective - Vital Signs/Intake and Output Vital Signs (last 24 hours): Temp Pulse Resp BP Pulse Ox 98.1 F 97 H 18 123/76 99 03/17/18 07:00 03/17/18 15:22 03/17/18 07:00 03/17/18 07:00 03/17/18 12:00 - Medications Medications: Current Medications Aspirin (Ecotrin) 81 mg PO DAILY [facility] Last Admin: 03/17/18 09:49 Dose: 81 mg Enoxaparin Sodium (Lovenox) 40 mg SC DAILY [facility] Last Admin: 03/17/18 09:49 Dose: 40 mg Cefepime HCl (Maxipime Iv 1 Gm Premix) 1 gm in 50 mls @ 100 mls/hr IVPB Q12H [facility]; Protocol Last Admin: 03/17/18 06:00 Dose: 100 mls/hr Metronidazole 250 mg/ (Miscellaneous) 50 mls @ 100 mls/hr IVPB Q8H [facility]; Protocol Last Admin: 03/17/18 09:48 Dose: 100 mls/hr Loperamide HCl (Imodium) 1 mg PO Q4 PRN PRN Reason: Diarrhea Last Admin: 03/16/18 14:12 Dose: 1 mg Pantoprazole Sodium (Protonix Ec Tab) 40 mg PO DAILY [facility] Last Admin: 03/17/18 14:00 Dose: 40 mg - Labs Labs: 03/17/18 08:09 03/16/18 07:58 Assessment and Plan (1) Chest pain Status: Acute (2) Enterocolitis Status: Acute
[2018-03-18] MEDS: metroNIDAZOLE IV 500 mg/100 ml 250 MG in Premixed IV 1 EA IVPB SCH ×3 (02:40→19:00)
[2018-03-18] MEDS: Cefepime IV 1 gm in Dextrose 1 GM/50 ML BAG IVPB SCH ×2 (06:10→19:32)
[2018-03-18 07:45] LABS: BASO % 0.5 % (0.0-2.0); EOS # 0.3 K/uL (0.0-0.7); EOS % 5.2 % (0.0-4.0); HEMOGLOBIN 17.1 g/dL (12.0-18.0); LYMPH # 1.1 K/uL (1.0-4.3); LYMPH % 21.5 % (20.0-40.0); MEAN CELL VOLUME 92.2 fL (80.0-94.0); MEAN CORPUSCULAR HEMOGLOBIN 31.5 pg (27.0-31.0); MEAN CORPUSCULAR HGB CONC 34.2 g/dL (33.0-37.0); MEAN PLATELET VOLUME 9.8 fL (7.2-11.7); MONO # 0.5 K/uL (0.0-0.8); MONO % 10.5 % (0.0-10.0); NEUT # 3.3 K/uL (1.8-7.0); NEUT % 62.3 % (50.0-75.0); NRBC % 0.2 % (0.0-2.0); RBC 5.42 Mil/uL (4.40-5.90); RED CELL DISTRIBUTION WIDTH 13.4 % (11.5-14.5); WHITE BLOOD COUNT 5.2 K/uL (4.8-10.8)
[2018-03-18] MEDS ORDERED: Lactated Ringer's 500 ML IV ONE (08:10)
[2018-03-18 08:11] LABS: ALB/GLOB RATIO 1.2 (1.0-2.1); ALT/SGPT 99 U/L (21-72); AST/SGOT 72 U/L (17-59); BLOOD UREA NITROGEN 17 mg/dL (9-20); CALCIUM 8.6 mg/dl (8.6-10.4); GFR NON-AFRICAN AMERICAN > 60
[2018-03-18] MEDS ORDERED: Propofol 10 mg/ml Inj (20 ML) ONE (08:20)
--- NOTE | 2018-03-18 08:37 | CP.PCM.PN ---
Subjective - Date & Time of Evaluation Date of Evaluation: 03/18/18 Time of Evaluation: 08:34 - Subjective Subjective: Brief EGD note: -Diffuse erosive antral gastritis -small hiatal hernia -Grade I reflux esophagitis Rec/ In absence of diarrhea since yesterday would advance diet and plan for possible discharge today or tomorrow Continue Protonix 40mg po daily. Low fat diet as tolerated Out patient follow up with me for review of biopsies and clinical assessment in 1-2 weeks. No colonoscopy at present as this was done 2015. Will reassess if diarrhea should persist or recur. Thank you for allowing me to participate in the care of this patient. Will follow if still in hospital tomorrow. Objective - Vital Signs/Intake and Output Vital Signs (last 24 hours): Temp Pulse Resp BP Pulse Ox 97.8 F 78 20 144/92 H 100 03/18/18 08:15 03/18/18 08:15 03/18/18 08:15 03/18/18 08:15 03/18/18 08:15 - Medications Medications: Current Medications Aspirin (Ecotrin) 81 mg PO DAILY [facility] Last Admin: 03/17/18 09:49 Dose: 81 mg Enoxaparin Sodium (Lovenox) 40 mg SC DAILY [facility] Last Admin: 03/17/18 09:49 Dose: 40 mg Cefepime HCl (Maxipime Iv 1 Gm Premix) 1 gm in 50 mls @ 100 mls/hr IVPB Q12H [facility]; Protocol Last Admin: 03/18/18 06:10 Dose: 100 mls/hr Metronidazole 250 mg/ (Miscellaneous) 50 mls @ 100 mls/hr IVPB Q8H [facility]; Protocol Last Admin: 03/18/18 02:40 Dose: 100 mls/hr Loperamide HCl (Imodium) 1 mg PO Q4 PRN PRN Reason: Diarrhea Last Admin: 03/16/18 14:12 Dose: 1 mg Pantoprazole Sodium (Protonix Ec Tab) 40 mg PO DAILY [facility] Last Admin: 03/17/18 14:00 Dose: 40 mg - Labs Labs: 03/18/18 07:30 03/18/18 07:30 Assessment and Plan (1) Lower abdominal pain Status: Resolved (2) Diarrhea Status: Acute (3) Nausea and vomiting Status: Acute (4) Abnormal CT of the abdomen Status: Acute (5) Abnormal transaminases Status: Acute (6) Epigastric pain Status: Acute
[2018-03-18] MEDS: Pantoprazole 40 mg EC Tab PO SCH (09:29)
--- NOTE | 2018-03-18 09:37 | CARD ---
APPROVED REPORT Date of service: 03/15/2018 EKG Measurement Heart [id number] <Conclusion> Sinus tachycardia Possible Lateral infarct, age undetermined Abnormal ECG
--- NOTE | 2018-03-18 14:13 | CP.PCM.PN ---
Subjective - Date & Time of Evaluation Date of Evaluation: 03/18/18 Time of Evaluation: 14:12 - Subjective Subjective: CHIEF COMPLAINTS TODAY : Status post upper endoscopy, shows diffuse gastritis and reflux esophagitis. No diarrhea for the last 24 hors ROS. HEENT : N. Resp : No cough, wheezing ,pleuritic CP ,or hemoptysis Cardio : No anginal CP, PND, orthopnea, palpitation GI : NoGI bleeding . AREA DEVELOPMENT MANAGER : No headache, vertigo, focal deficit. Musculoskel : No joint swelling , Derm : No rash Psych : Normal affect. Ext : No swelling ,calf pain PE. Pt. is alert awake in no distress. V.S As noted in the chart Head ,ear nose,throat and eyes : Normal. Neck : Supple with normal carotids. Lungs: Clear air entry. Heart : S1 & S2 normal with S4. No murmur. Abd : Soft tender with normal bowel sounds. Neuro : Moves all ext. with no localized deficit. Ext : No edema with intact pulses.Non tender calves Derm : No rashes or decubitus ulcer. LABS/RADIOLOGY:3 sets of cardiac enzymes troponin levels are negative. Echo N . C. DIFF NEG ASSESSMENT/PLAN : Continue IV fluids Pepcid awaiting stool workup If stable will discharge in the morning Objective - Vital Signs/Intake and Output Vital Signs (last 24 hours): Temp Pulse Resp BP Pulse Ox 96.8 F L 76 13 112/83 98 03/18/18 08:32 03/18/18 12:17 03/18/18 09:02 03/18/18 09:02 03/18/18 12:00 - Medications Medications: Current Medications Aspirin (Ecotrin) 81 mg PO DAILY [facility] Last Admin: 03/18/18 09:29 Dose: 81 mg Enoxaparin Sodium (Lovenox) 40 mg SC DAILY [facility] Last Admin: 03/17/18 09:49 Dose: 40 mg Cefepime HCl (Maxipime Iv 1 Gm Premix) 1 gm in 50 mls @ 100 mls/hr IVPB Q12H [facility]; Protocol Last Admin: 03/18/18 06:10 Dose: 100 mls/hr Metronidazole 250 mg/ (Miscellaneous) 50 mls @ 100 mls/hr IVPB Q8H [facility]; Protocol Last Admin: 03/18/18 10:06 Dose: 100 mls/hr Loperamide HCl (Imodium) 1 mg PO Q4 PRN PRN Reason: Diarrhea Last Admin: 03/16/18 14:12 Dose: 1 mg Pantoprazole Sodium (Protonix Ec Tab) 40 mg PO DAILY [facility] Last Admin: 03/18/18 09:29 Dose: 40 mg - Labs Labs: 03/18/18 07:30 03/18/18 07:30 Assessment and Plan (1) Chest pain Status: Acute (2) Enterocolitis Status: Acute
[2018-03-18 14:44] LABS: SOURCE STOOL
--- NOTE | 2018-03-18 19:44 | CP.PCM.PN ---
Subjective - Date & Time of Evaluation Date of Evaluation: 03/18/18 Time of Evaluation: 19:44 - Subjective Subjective: CHIEF COMPLAINTS TODAY : afebrile C/O EPIGASTRIC PAIN s/p EGD ; shows diffuse gastritis and reflux esophagitis. No diarrhea for the last 24 hors PT NPO -FOR ABD. US ROS. HEENT : N. Resp : No cough, wheezing ,pleuritic CP ,or hemoptysis Cardio : No anginal CP, PND, orthopnea, palpitation GI : No GI bleeding . SECURITIES ATTORNEY : No headache, vertigo, focal deficit. Musculoskel : No joint swelling , Derm : No rash Psych : Normal affect. Ext : No swelling ,calf pain PE. Pt. is alert awake in no distress. V.S As noted in the chart Head ,ear nose,throat and eyes : Normal. Neck : Supple with normal carotids. Lungs: Clear air entry. Heart : S1 & S2 normal with S4. No murmur. Abd : Soft ,MILD TENDERNESS IN EPIGASTRIUM, with normal bowel sounds. Neuro : Moves all ext. with no localized deficit. Ext : No edema with intact pulses.Non tender calves Derm : No rashes or decubitus ulcer. LABS/RADIOLOGY: STOOL +OB X2 DIARRHOEA W/U -VE TO DATE HEP. SCREEN -VE 3 sets of cardiac enzymes troponin levels are negative. Echo N . ASSESSMENT ABDOMINAL PAIN GASTRITIS S/P EGD REFLUX ESOPHAGITIS. COLITIS /PLAN : CONTINUE IV ABX FOR NOW IF ALL CULTURES -VE WILL DC ABX IN AM F/U US ABDOMEN. PER GI. Objective - Vital Signs/Intake and Output Vital Signs (last 24 hours): Temp Pulse Resp BP Pulse Ox 98 F 76 18 109/69 97 03/18/18 15:51 03/18/18 15:51 03/18/18 15:51 03/18/18 15:51 03/18/18 15:51 - Medications Medications: Current Medications Aspirin (Ecotrin) 81 mg PO DAILY [facility] Last Admin: 03/18/18 09:29 Dose: 81 mg Enoxaparin Sodium (Lovenox) 40 mg SC DAILY [facility] Last Admin: 03/17/18 09:49 Dose: 40 mg Cefepime HCl (Maxipime Iv 1 Gm Premix) 1 gm in 50 mls @ 100 mls/hr IVPB Q12H [facility]; Protocol Last Admin: 03/18/18 19:32 Dose: 100 mls/hr Metronidazole 250 mg/ (Miscellaneous) 50 mls @ 100 mls/hr IVPB Q8H [facility]; Protocol Last Admin: 03/18/18 19:00 Dose: 100 mls/hr Loperamide HCl (Imodium) 1 mg PO Q4 PRN PRN Reason: Diarrhea Last Admin: 03/16/18 14:12 Dose: 1 mg Pantoprazole Sodium (Protonix Ec Tab) 40 mg PO DAILY [facility] Last Admin: 03/18/18 09:29 Dose: 40 mg - Labs Labs: 03/18/18 07:30 03/18/18 07:30 Assessment and Plan (1) Abdominal pain Status: Acute (2) Enterocolitis Status: Acute (3) Abnormal transaminases Status: Chronic (4) Chest pain, atypical Status: Acute
[2018-03-19] MEDS: metroNIDAZOLE IV 500 mg/100 ml 250 MG in Premixed IV 1 EA IVPB SCH ×3 (03:10→18:36)
[2018-03-19] MEDS: Cefepime IV 1 gm in Dextrose 1 GM/50 ML BAG IVPB SCH ×2 (06:15→19:19)
[2018-03-19] MEDS: Pantoprazole 40 mg EC Tab PO SCH (09:57)
[2018-03-19] MEDS: Enoxaparin 40 mg Syringe SC SCH (09:57)
--- NOTE | 2018-03-19 10:15 | US ---
Date of service: 03/18/2018 HISTORY: abnormal LFTs, upper abdominal pain COMPARISON: 02/06/2017 TECHNIQUE: Sonographic evaluation of the abdomen. FINDINGS: LIVER: Measures 16.0 cm. Hepatopedal blood flow. Fatty infiltration manifest ultrasonographically as increased echogenicity of the liver parenchyma. No mass. No intrahepatic bile duct dilatation. GALLBLADDER: Unremarkable. No gallstones. COMMON BILE DUCT: Measures 4.2 mm. No stones. No dilatation. PANCREAS: Unremarkable as visualized. No mass. No ductal dilatation. RIGHT KIDNEY: Measures 5.4 x 11.2cm. Normal echogenicity. No calculus, mass, or hydronephrosis. LEFT KIDNEY: Measures 6.3 x 11.1cm. Normal echogenicity. No calculus, mass, or hydronephrosis. SPLEEN: Normal in size and contour. No mass. AORTA: No aneurysmal dilatation. IVC: Unremarkable. OTHER FINDINGS: None. IMPRESSION: Hepatic steatosis. No focal masses. No intrahepatic bile duct dilatation or perihepatic ascites. No significant interval change compared to the prior examination(s). Concordant findings (preliminary report) provided by [facility].
--- NOTE | 2018-03-19 11:42 | CP.PCM.PN ---
Subjective - Date & Time of Evaluation Date of Evaluation: 03/19/18 Time of Evaluation: 11:39 - Subjective Subjective: Patient denies pain or diarrhea. Poor appetite but feels well. LFT's remain mildly elevated. Objective - Vital Signs/Intake and Output Vital Signs (last 24 hours): Temp Pulse Resp BP Pulse Ox 98.1 F 66 20 110/72 97 03/19/18 08:41 03/19/18 08:41 03/19/18 08:41 03/19/18 08:41 03/19/18 08:41 - Medications Medications: Current Medications Aspirin (Ecotrin) 81 mg PO DAILY [facility] Last Admin: 03/19/18 09:57 Dose: 81 mg Enoxaparin Sodium (Lovenox) 40 mg SC DAILY [facility] Last Admin: 03/19/18 09:57 Dose: 40 mg Cefepime HCl (Maxipime Iv 1 Gm Premix) 1 gm in 50 mls @ 100 mls/hr IVPB Q12H [facility]; Protocol Last Admin: 03/19/18 06:15 Dose: 100 mls/hr Metronidazole 250 mg/ (Miscellaneous) 50 mls @ 100 mls/hr IVPB Q8H [facility]; Protocol Last Admin: 03/19/18 09:56 Dose: 100 mls/hr Loperamide HCl (Imodium) 1 mg PO Q4 PRN PRN Reason: Diarrhea Last Admin: 03/16/18 14:12 Dose: 1 mg Pantoprazole Sodium (Protonix Ec Tab) 40 mg PO DAILY [facility] Last Admin: 03/19/18 09:57 Dose: 40 mg - Labs Labs: 03/18/18 07:30 03/18/18 07:30 - Constitutional Appears: No Acute Distress - Head Exam Head Exam: ATRAUMATIC, NORMOCEPHALIC - Eye Exam Eye Exam: EOMI, PERRL - Respiratory Exam Respiratory Exam: NORMAL BREATHING PATTERN - Cardiovascular Exam Cardiovascular Exam: REGULAR RHYTHM - GI/Abdominal Exam GI & Abdominal Exam: Soft, Normal Bowel Sounds. absent: Tenderness, Mass, R ebound - Extremities Exam Extremities Exam: Normal Inspection Assessment and Plan (1) Lower abdominal pain Status: Resolved (2) Diarrhea Assessment & Plan: Clinically resolved. Likely due to acute enteritis. Advance diet and encourage po intake. Out patient follow up Status: Resolved (3) Nausea and vomiting Status: Resolved (4) Abnormal CT of the abdomen Status: Acute (5) Abnormal transaminases Assessment & Plan: Likely due to NAFLD from obesity and hyperlipidemia. Monitor as outpatient. Diet, weight loss and risk factor management. Status: Chronic (6) Epigastric pain Assessment & Plan: Clinically resolved on Protonix. Await biopsies Status: Resolved
--- NOTE | 2018-03-19 15:02 | CP.PCM.PN ---
Subjective - Date & Time of Evaluation Date of Evaluation: 03/19/18 Time of Evaluation: 15:00 - Subjective Subjective: Patient had an episode of SVT this morning spontaneously responded carotid normal sinus rhythm. GI workup so for is negative for any acute process. Will observe for tonight if stable will discharge in a.m. Objective - Vital Signs/Intake and Output Vital Signs (last 24 hours): Temp Pulse Resp BP Pulse Ox 98.1 F 66 20 110/72 97 03/19/18 08:41 03/19/18 08:41 03/19/18 08:41 03/19/18 08:41 03/19/18 08:41 - Medications Medications: Current Medications Aspirin (Ecotrin) 81 mg PO DAILY [facility] Last Admin: 03/19/18 09:57 Dose: 81 mg Enoxaparin Sodium (Lovenox) 40 mg SC DAILY [facility] Last Admin: 03/19/18 09:57 Dose: 40 mg Cefepime HCl (Maxipime Iv 1 Gm Premix) 1 gm in 50 mls @ 100 mls/hr IVPB Q12H [facility]; Protocol Last Admin: 03/19/18 06:15 Dose: 100 mls/hr Metronidazole 250 mg/ (Miscellaneous) 50 mls @ 100 mls/hr IVPB Q8H [facility]; Protocol Last Admin: 03/19/18 09:56 Dose: 100 mls/hr Loperamide HCl (Imodium) 1 mg PO Q4 PRN PRN Reason: Diarrhea Last Admin: 03/16/18 14:12 Dose: 1 mg Pantoprazole Sodium (Protonix Ec Tab) 40 mg PO DAILY [facility] Last Admin: 03/19/18 09:57 Dose: 40 mg Pneumococcal Polyvalent Vaccine (Pneumovax 23 Vaccine) 0.5 ml IM .ONCE ONE Stop: 03/20/18 10:01 - Labs Labs: 03/18/18 07:30 03/18/18 07:30 Assessment and Plan (1) Chest pain Status: Acute (2) Enterocolitis Status: Acute
[2018-03-20 00:57] VITALS: RESP 20
[2018-03-20] MEDS: metroNIDAZOLE IV 500 mg/100 ml 250 MG in Premixed IV 1 EA IVPB SCH ×2 (03:20→10:47)
[2018-03-20] MEDS: Cefepime IV 1 gm in Dextrose 1 GM/50 ML BAG IVPB SCH (06:04)
[2018-03-20 08:47] VITALS: BP 113/76; PULSE 63; TEMP 98; O2SAT 96
[2018-03-20] MEDS: Pantoprazole 40 mg EC Tab PO SCH (09:32)
[2018-03-20] MEDS: Enoxaparin 40 mg Syringe SC SCH (09:32)
--- NOTE | 2018-03-20 09:40 | CP.PCM.PN ---
Subjective - Date & Time of Evaluation Date of Evaluation: 03/20/18 Time of Evaluation: 09:37 - Subjective Subjective: Kept following a cardiac arrhythmia yesterday. No diarrhea or pain. heartburn well controlled. Tolerating solid food. Objective - Vital Signs/Intake and Output Vital Signs (last 24 hours): Temp Pulse Resp BP Pulse Ox 98.0 F 63 20 113/76 96 03/20/18 08:44 03/20/18 08:44 03/20/18 08:44 03/20/18 08:44 03/20/18 08:44 Intake and Output: 03/20/18 03/20/18 06:59 18:59 Intake Total 310 Balance 310 - Medications Medications: Current Medications Aspirin (Ecotrin) 81 mg PO DAILY [facility] Last Admin: 03/20/18 09:32 Dose: 81 mg Enoxaparin Sodium (Lovenox) 40 mg SC DAILY [facility] Last Admin: 03/20/18 09:32 Dose: 40 mg Cefepime HCl (Maxipime Iv 1 Gm Premix) 1 gm in 50 mls @ 100 mls/hr IVPB Q12H [facility]; Protocol Last Admin: 03/20/18 06:04 Dose: 100 mls/hr Metronidazole 250 mg/ (Miscellaneous) 50 mls @ 100 mls/hr IVPB Q8H [facility]; Protocol Last Admin: 03/20/18 03:20 Dose: 100 mls/hr Loperamide HCl (Imodium) 1 mg PO Q4 PRN PRN Reason: Diarrhea Last Admin: 03/16/18 14:12 Dose: 1 mg Pantoprazole Sodium (Protonix Ec Tab) 40 mg PO DAILY [facility] Last Admin: 03/20/18 09:32 Dose: 40 mg Pneumococcal Polyvalent Vaccine (Pneumovax 23 Vaccine) 0.5 ml IM .ONCE ONE Stop: 03/20/18 10:01 Last Admin: 03/20/18 09:34 Dose: 0.5 ml - Labs Labs: 03/18/18 07:30 03/18/18 07:30 - Constitutional Appears: No Acute Distress - Head Exam Head Exam: ATRAUMATIC, NORMOCEPHALIC - Respiratory Exam Respiratory Exam: NORMAL BREATHING PATTERN - Cardiovascular Exam Cardiovascular Exam: REGULAR RHYTHM - GI/Abdominal Exam GI & Abdominal Exam: Soft, Normal Bowel Sounds. absent: Tenderness - Extremities Exam Extremities Exam: Normal Inspection Assessment and Plan (1) Lower abdominal pain Status: Resolved (2) Diarrhea Status: Resolved (3) Nausea and vomiting Status: Resolved (4) Abnormal CT of the abdomen Status: Acute (5) Abnormal transaminases Status: Chronic (6) Epigastric pain Status: Resolved (7) GERD with esophagitis Assessment & Plan: Clinically much improved on Protonix. Continue PPI upon discharge Out patient follow up in 2 weeks to assess and review pathology. Status: Acute (8) Gastritis Status: Acute
[2018-03-20] MEDS ORDERED: Pneumococcal 23-Valent Vaccine IM ONE (10:00)
== END 2018-03-20 13:00 | disposition home or self-care (01) | DRG 392 ==
LOC: C.ER 07:23 → C.9E 10:47 → C.6T 11:45 → OBSVTOIN 03-18 15:48
PROVIDERS: ADMIT Internal Medicine Cardiovascular Disease; ATTEND Internal Medicine Cardiovascular Disease
PROC: 0DB58ZX Excision of Esophagus, Via Natural or Artificial Opening Endoscopic, Diagnostic (ICD-10-PCS; 2018-03-18)
PROC: 0DB68ZX Excision of Stomach, Via Natural or Artificial Opening Endoscopic, Diagnostic (ICD-10-PCS; principal; 2018-03-18 08:19)
DX: A09 Infectious gastroenteritis and colitis, unspecified (principal); K57.30 Diverticulosis of large intestine without perforation or abscess without bleeding; E78.00 Pure hypercholesterolemia, unspecified; E66.9 Obesity, unspecified; E78.5 Hyperlipidemia, unspecified; Z68.31 Body mass index [BMI] 31.0-31.9, adult; R07.89 Other chest pain; K76.0 Fatty (change of) liver, not elsewhere classified; K21.0 Gastro-esophageal reflux disease with esophagitis; K44.9 Diaphragmatic hernia without obstruction or gangrene; K29.60 Other gastritis without bleeding